=== PATIENT | female | born 1990 | race Hispanic/Latino ===

== ENCOUNTER 2017-12-19 10:45 | Emergency (ER) | payer MEDICAID ==
[2017-12-19 10:51] VITALS: RESP 18; BMI 27.3
[2017-12-19] MEDS ORDERED: Tetracaine 0.5% Ophth 2 ML BOTTLE OS STA (11:25)
[2017-12-19] MEDS ORDERED: TDAP Vaccine 0.5 mL Syr IM ONE (12:07)
[2017-12-19] MEDS ORDERED: Tobramycin 0.3% OPHT SOLN OS STA (12:07)
--- NOTE | 2017-12-19 12:14 | ED PDOC ---
Arrival/HPI - General Chief Complaint: Eye Problem Time Seen by Provider: 12/19/17 11:05 Historian: Patient - History of Present Illness Narrative History of Present Illness (Text): 12/19/17 12:10 27yo female who present with complaint of right eye pain, tearing, photophobia since last night. States the eyelid became swollen this morning so she came to the ED. States she is not sure if she scratched her eye. Denies trauma, purulent discharge, visual acuity changes, any other complaint. Past Medical History - Provider Review Nursing Documentation Reviewed: Yes - Infectious Disease Hx of Infectious Diseases: None - Psychiatric Hx Substance Use: No - Anesthesia Hx Anesthesia: No Family/Social History - Physician Review Nursing Documentation Reviewed: Yes Family/Social History: Unknown Family HX Smoking Status: Never Smoked Hx Alcohol Use: No Hx Substance Use: No Allergies/Home Meds Allergies/Adverse Reactions: Allergies No Known Allergies Allergy (Verified 12/19/17 10:50) Home Medications: Home Meds Medication Instructions Recorded Confirmed No Known Home Med 12/19/17 12/19/17 Review of Systems - Physician Review All systems were reviewed & negative as marked: Yes - Review of Systems Constitutional: Normal Eyes: Photophobia, Eye Pain (right eye) ENT: Normal Respiratory: Normal Cardiovascular: Normal Gastrointestinal: Normal Genitourinary Female: Normal Musculoskeletal: Normal Skin: Normal Neurological: Normal Endocrine: Normal Hemo/Lymphatic: Normal Psychiatric: Normal Physical Exam Vital Signs Reviewed: Yes Vital Signs Temp Pulse Resp BP Pulse Ox 12/19/17 10:51 98.7 F 82 18 121/73 98 Temperature: Afebrile Blood Pressure: Normal Pulse: Regular Respiratory Rate: Normal Appearance: Positive for: Well-Appearing, Non-Toxic, Comfortable Pain Distress: None Mental Status: Positive for: Alert and Oriented X 3 - Systems Exam Head: Present: Atraumatic, Normocephalic Pupils: Present: PERRL Extroacular Muscles: Present: EOMI Conjunctiva: Present: Normal, Icteric (Right pinkish), Other (florescin uptake at the 12 oclock position). No: Injected Mouth: Present: Moist Mucous Membranes Neck: Present: Normal Range of Motion Respiratory/Chest: Present: Clear to Auscultation, Good Air Exchange. No: Respiratory Distress, Accessory Muscle Use Cardiovascular: Present: Regular Rate and Rhythm, Normal S1, S2. No: Murmurs Abdomen: No: Tenderness, Distention, Peritoneal Signs Back: Present: Normal Inspection Upper Extremity: Present: Normal Inspection. No: Cyanosis, Edema Lower Extremity: Present: Normal Inspection. No: Edema Neurological: Present: GCS=15, CN II-XII Intact, Speech Normal Skin: Present: Warm, Dry, Normal Color. No: Rashes Psychiatric: Present: Alert, Oriented x 3, Normal Insight, Normal Concentration Medical Decision Making - Medication Orders Current Medication Orders: Tetanus/Reduced Diphtheria/Acell Pertussis (Boostrix Vaccine Inj) 0.5 ml IM .ONCE ONE Stop: 12/19/17 12:08 Discontinued Medications Tetracaine HCl (Tetracaine 0.5% Ophth Soln) 2 drop OS STAT STA Stop: 12/19/17 11:26 Last Admin: 12/19/17 11:53 Dose: 2 drop Tobramycin Sulfate (Tobrex 0.3% Ophth Soln) 2 drop OS STAT STA Stop: 12/19/17 12:08 Disposition/Present on Arrival - Present on Arrival Any Indicators Present on Arrival: No History of DVT/PE: No History of Uncontrolled Diabetes: No Urinary Catheter: No History of Decub. Ulcer: No History Surgical Site Infection Following: None - Disposition Have Diagnosis and Disposition been Completed?: Yes Diagnosis: Corneal abrasion Disposition: HOME/ ROUTINE Disposition Time: 12:15 Patient Plan: Discharge Condition: STABLE Discharge Instructions (ExitCare): Corneal Abrasion Additional Instructions: Follow up with dispensary clerk Return to ED for any new or worsening symptoms Referrals: Lam Andrade MD [Staff Provider] - Follow up with primary
[2017-12-19 12:55] VITALS: BP 125/82; PULSE 75; TEMP 98.5; O2SAT 99
== END 2017-12-19 12:55 | disposition home or self-care (01) ==
LOC: ED 10:45 → MERGE 10:45 → ED 12:55
DX: S05.01XA Injury of conjunctiva and corneal abrasion without foreign body, right eye, initial encounter (principal); X58.XXXA Exposure to other specified factors, initial encounter; Y92.9 Unspecified place or not applicable; Z23 Encounter for immunization